=== PATIENT | male | born 1980 | race Caucasian/White ===

== ENCOUNTER → 2016-10-20 | Outpatient (CLI) | payer BC ==
[~2016-10-20] MED LIST: AMOXICILLIN125 MG PO; MOTRIN20 MG/ML PO
--- NOTE | ~2016-10-20 | CR63 ---
[facility] A Service of [facility] & [facility] RADIOLOGY TEXT RESULTS PATIENT: DOMINGO WELLS LOCATION: [facility] : 78 UNIT #: [id number] AGE: [address]: Pratibha Castillo MD SEX: M ORDER DR: [id number] [facility] [address] [place], [place] [address] [id number] O MR#: [id number] Acc #: [id number] NAME: DOMINGO WELLS : 1980 SEX: M STUDY DATE/TIME: 10/20/2016 11:34 UNIT: [facility] ROOM: STUDY DESCRIPTION: CR Chest 2 View Attending Physician: Pratibha Castillo M.D. Referring Physician: Pratibha Castillo M.D. Ordering Physician: Pratibha Castillo M.D. Primary Care Physician: Pratibha Castillo M.D. MEDICAL IMAGING REPORT This report is preliminary unless electronic signature is present EXAM Chest, 10/20/2016, [facility]. HISTORY 36-year-old male patient, persistent cough x3 months. Patient is current smoker with high blood pressure. COMPARISON Chest none. FINDINGS Two-view chest demonstrates mild prominence of the cardiac silhouette. There is a moderate left pleural effusion with additional parenchymal density in the left lower lobe retrocardiac location. There appears to be some volume loss in this area. Right lung is expanded and clear. IMPRESSION Moderate left pleural effusion is present. Suggestion of a left lower lobe consolidation and some associated atelectasis. Recommend followup chest CT as bronchoscopy may be indicated. STAT * RESULT Dictated by... Shay Vásquez M.D. THIS IS AN ELECTRONICALLY VERIFIED REPORT Shay Vásquez M.D. at 10/20/2016 1:56 PM LATISHA/bijan TD: 10/20/2016 11:58 [facility] A Service of [facility] & [facility] RADIOLOGY TEXT RESULTS PATIENT: DOMINGO WELLS LOCATION: [facility] #: [id number] : [birth year] UNIT #: [id number] AGE: [address]: Pratibha Castillo MD SEX: M ORDER DR: JOB #: [id number] MEDICAL IMAGING REPORT Page 1 of 1 COPY
--- NOTE | ~2016-10-20 | CT55 ---
[facility] A Service of [facility] RADIOLOGY TEXT RESULTS PATIENT: DOMINGO WELLS LOCATION: [facility] : 78 UNIT #: [id number] AGE: [address]: Pratibha Castillo MD SEX: M ORDER DR: [id number] [facility] [address] [place], [place] [address] [id number] O MR#: [id number] Acc #: [id number] NAME: DOMINGO WELLS : 1980 SEX: M STUDY DATE/TIME: 10/20/2016 13:53 UNIT: [facility] ROOM: STUDY DESCRIPTION: CT Chest W Con Attending Physician: Pratibha Castillo M.D. Referring Physician: Pratibha Castillo M.D. Ordering Physician: Pratibha Castillo M.D. Primary Care Physician: Pratibha Castillo M.D. MEDICAL IMAGING REPORT This report is preliminary unless electronic signature is present EXAM CT of the chest with contrast INDICATION Left pleural effusion identified on PA and lateral chest radiograph from October 20, 2016. TECHNIQUE Axial CT images were obtained from the thoracic inlet through the dome of the diaphragm following the administration of intravenous contrast material. This CT examination was performed with one or more of the following radiation dose reduction techniques: automatic exposure control, adjustment of mA and/or kV according to patient size, and iterative reconstruction. FINDINGS The thyroid gland, trachea and esophagus appear unremarkable. Patient is noted to have a small to moderate left pleural effusion. There is some left basilar consolidation which could reflect infiltrate although compressive atelectasis would be another consideration. There is effusion does appear to be partially loculated. Thyroid gland, trachea and esophagus appear unremarkable. There is no pericardial effusion. No effusion is seen on the right. Mediastinal lymph nodes do not appear pathologically enlarged. Splenomegaly with the spleen measuring up to 15.1 cm in length. Liver is also enlarged measuring up to 16.7 cm in length. Review of bony windows does not demonstrate any aggressive osseous abnormalities. IMPRESSION 1. This patient has a small to moderate left pleural effusion which does appear partially loculated. There is some associated consolidation at the left lung base. This certainly could reflect a parapneumonic effusion in the appropriate clinical setting. Short-term followup [facility] A Service of [facility] RADIOLOGY TEXT RESULTS PATIENT: DOMINGO WELLS LOCATION: [facility] : 78 UNIT #: [id number] AGE: [address]: Pratibha Castillo MD SEX: M ORDER DR: exam to document resolution of both the infiltrate and the effusion is recommended. 2. Hepatosplenomegaly of uncertain clinical significance. Patient also has diffuse hepatic steatosis. Dictated by... Lisa Becerra M.D. THIS IS AN ELECTRONICALLY VERIFIED REPORT Lisa Becerra M.D. at 10/21/2016 2:08 PM HEIDI/chase TD: 10/21/2016 13:52 JOB #: [id number] MEDICAL IMAGING REPORT Page 1 of 1 COPY
[2016-10-20 18:40] LABS: POC - CREATININE 1.22 mg/dL (0.64-1.27); POC - GFR >60.0 mL/min (>60)
== END | disposition home or self-care (01) ==
LOC: CCAT 11:18 → CRAD 11:18
PROVIDERS: Internal Medicine
DX: R05 Cough (principal); J90 Pleural effusion, not elsewhere classified; R16.2 Hepatomegaly with splenomegaly, not elsewhere classified; K76.0 Fatty (change of) liver, not elsewhere classified
CPT/HCPCS: 71020; 71260; 82565; Q9967